=== PATIENT | male | born 1995 | race Two or more races ===

== ENCOUNTER 2019-08-09 23:23 | Emergency (ER) | payer SELFPAY ==
[~2019-08-09] VITALS: Ht 175.3 cm; Wt 81.0 kg
[2019-08-09 23:34] VITALS: BP 134/89
== END 2019-08-10 03:07 | disposition home or self-care (01) ==
LOC: ER 23:23
DX: R05 Cough (principal); R06.03 Acute respiratory distress
CPT/HCPCS: 99281